=== PATIENT | female | born 1995 | race Hispanic/Latino ===

== ENCOUNTER 2019-10-21 12:57 | Emergency (ER) | payer SELFPAY ==
[2019-10-21 13:47] LABS: Urine Blood NEGATIVE (NEG); Urine Glucose NEGATIVE (NEG); Urine Protein NEGATIVE (NEG)
[2019-10-21] MEDS ORDERED: NA CHLORIDE 0.9% 1,000 ML ONE (14:05)
[2019-10-21 14:23] LABS: Absolute Lymphocytes (CBC) 1.4 K/uL (0.7-4.9); Basophils % 0.3 % (0-1.3); Hematocrit 39.2 % (36.0-45.0); Lymphocytes % 15.5 % (15.3-44.8); MPV 9.4 fL (7.6-11.3); RBC Red Blood Cell Count 4.68 M/uL (3.86-4.86)
[2019-10-21 14:37] LABS: ALT/SGPT 24 U/L (12-78); AST/SGOT 18 U/L (15-37); Alkaline Phosphatase 57 U/L (45-117); BUN Blood Urea Nitrogen 10 mg/dL (7-18); Bicarbonate 25 mmol/L (21-32); Bilirubin Direct 0.2 mg/dL (0-0.2); Bilirubin Total 0.6 mg/dL (0.2-1.0); Glucose Level 91 mg/dL (74-106); Lipase 140 U/L (73-393); Potassium 3.6 mmol/L (3.5-5.1); Protein, Total 8.3 g/dL (6.4-8.2); Sodium Level 138 mmol/L (136-145)
--- NOTE | 2019-10-21 15:09 | RAD REPORT ---
EXAM DESCRIPTION: CT - Abdomen Pelvis W Contrast - 10/21/2019 2:51 pm CLINICAL HISTORY: Abdominal pain COMPARISON: none. TECHNIQUE: Computed axial tomography of the abdomen pelvis was obtained. 100 cc Isovue-300 was admin istered intravenously. Oral contrast was not requested which limits evaluation of bowel. All CT scans are performed using dose optimization technique as appropriate and may include automated exposure control or mA/KV adjustment according to patient size. FINDINGS: Fatty liver The Spleen, pancreas, adrenal and kidneys appear unremarkable. There is no evidence of diverticulitis. Normal appendix Colon lies within the left abdomen pelvis. Small bowel lies within the right abdomen and pelvis. This indicates a malrotation. The wall of several loops of ileum are moderately thickened. No significant free fluid IMPRESSION: Bowel malrotation Moderate wall thickening of several loops of ileum may indicate inflammation
--- NOTE | 2019-10-21 15:49 | ER ---
Nurse's Notes [facility] Name: Diana Haley Age: 24 yrs Sex: Female : 1995 Arrival Date: 10/21/2019 Time: 13:00 Bed 5 Private MD: Diagnosis: Diarrhea, unspecified;Lower abdominal pain, unspecified Presentation: 10/21 13:06 Presenting complaint: Lower abdominal pain and N/D x 2 days. Transition of care: hb patient was not received from another setting of care. Onset of symptoms was October 20, 2019. Risk Assessment: Do you want to hurt yourself or someone else? Patient reports no desire to harm self or others. Initial Sepsis Screen: Does the patient meet any 2 criteria? No. Patient's initial sepsis screen is negative. Does the patient have a suspected source of infection?. Care prior to arrival: None. 13:06 Method Of Arrival: Ambulatory 13:06 Acuity: DAYRON 3 hb Historical: - Allergies: 13:09 No Known Allergies; hb - Home Meds: 13:09 None [Active]; hb - PMHx: 13:09 None; hb - PSHx: 13:09 None; hb - Immunization history:: Adult Immunizations up to date. - Social history:: Smoking status: Patient/guardian denies using tobacco. - Ebola Screening: : No symptoms or risks identified at this time. Screenin:30 Abuse screen: Denies threats or abuse. Denies injuries from another. Nutritional sg screening: No deficits noted. Tuberculosis screening: No symptoms or risk factors identified. Never had TB. Fall Risk None identified. Assessment: 13:30 General: Appears in no apparent distress. well groomed, well developed, well nourished, sg Behavior is calm, cooperative, appropriate for age. Pain: Complains of pain in right lower quadrant Quality of pain is described as aching. Neuro: Level of Consciousness is awake, alert, obeys commands, Oriented to person, place, time, situation, [employer] are equal bilaterally Speech is normal, Facial symmetry appears normal. Cardiovascular: Patient's skin is warm and dry. Chest pain is denied. Respiratory: Airway is patent Respiratory effort is even, unlabored, Respiratory pattern is regular, symmetrical. GI: Abdomen is round non-distended, Bowel sounds present X 4 quads. Abd is soft and non tender X 4 quads. Reports lower abdominal pain, tolerance of fluids, tolerance of food. : No signs and/or symptoms were reported regarding the genitourinary system. EENT: No signs and/or symptoms were reported regarding the EENT system. Derm: Skin is pink, warm \T\ dry. Musculoskeletal: Circulation, motion, and sensation intact. Range of motion: intact in all extremities. Vital Signs: 13:09 BP 129 / 99; Pulse 99; Resp 16; Temp 99.9; Pulse Ox 99% ; Weight 64.86 kg; Height 5 ft. hb (152.40 cm); Pain 3/10; 13:09 Body Mass Index 27.93 (64.86 kg, 152.40 cm) hb ED Course: 13:00 Patient arrived in ED. as 13:03 Kevin Taylor PA is PHCP. [facility] 13:03 Mynor Garcia MD is Attending Physician. [facility] 13:08 Syed Mora, HERMILO is Primary Nurse. sg 13:08 Triage completed. hb 13:09 Arm band placed on. hb 13:30 Patient has correct armband on for positive identification. Bed in low position. Call sg light in reach. Side rails up X2. Pulse ox on. NIBP on. 14:10 Initial lab(s) drawn, by me, sent to lab. Inserted saline lock: 22 gauge in right sg antecubital area, using aseptic technique. Blood collected. 14:19 Radiology exam delayed due to lab results not completed at this time. (BUN/Creatinine). nj 14:52 CT Abd/Pelvis - IV Contrast Only In Process Unspecified. EDMS 16:31 No provider procedures requiring assistance completed. IV discontinued, intact, hb bleeding controlled, No redness/swelling at site. Pressure dressing applied. Administered Medications: 14:15 Drug: NS 0.9% 1000 ml Route: IV; Rate: 1 bolus; Site: right antecubital; sg Outcome: 15:48 Discharge ordered by . [facility] 16:31 Discharged to home ambulatory. hb 16:31 Condition: stable 16:31 Discharge instructions given to patient, Instructed on discharge instructions, follow up and referral plans. medication usage, Demonstrated understanding of instructions, follow-up care, medications, Prescriptions given X 1. 16:32 Patient left the ED. hb Signatures: Dispatcher [employer] EDMS Syed Mora, RN RN Kevin Rhoades PA PA jmm Martinez, Amelia as Baxter, Heather, HERMILO RN Niraj Hernandez
--- NOTE | 2019-10-21 15:50 | EDPHYS ---
Physician Documentation [facility] Name: Diana Haley Age: 24 yrs Sex: Female : 1995 Arrival Date: 10/21/2019 Time: 13:00 Bed 5 Private MD: ED Physician Mynor Garcia HPI: 10/21 13:31 This 24 yrs old Female presents to ER via Ambulatory with complaints of jmm Abdominal Pain. 13:31 The patient presents with abdominal pain right lower quadrant. Onset: The jmm symptoms/episode began/occurred gradually, 2 day(s) ago. The symptoms do not radiate. Associated signs and symptoms: Pertinent positives: diarrhea, nausea. The symptoms are described as achy. Modifying factors: The symptoms are alleviated by nothing, the symptoms are aggravated by alcohol. This is a 24 year old female with no chronic medical conditions that presents to the ED with complaints of pain to her lower abdomen along with multiple episodes of diarrhea. . Historical: - Allergies: 13:09 No Known Allergies; hb - Home Meds: 13:09 None [Active]; hb - PMHx: 13:09 None; hb - PSHx: 13:09 None; hb - Immunization history:: Adult Immunizations up to date. - Social history:: Smoking status: Patient/guardian denies using tobacco. - Ebola Screening: : No symptoms or risks identified at this time. ROS: 13:31 Constitutional: Negative for fever, chills, and weight loss, Cardiovascular: Negative jmm for chest pain, palpitations, and edema, Respiratory: Negative for shortness of breath, cough, wheezing, and pleuritic chest pain. 13:31 Abdomen/GI: Positive for abdominal pain, diarrhea. 13:31 All other systems are negative. Exam: 13:31 Constitutional: This is a well developed, well nourished patient who is awake, alert, jmm and in no acute distress. Head/Face: atraumatic. Eyes: EOMI, no conjunctival erythema appreciated ENT: Moist Mucus Membranes Neck: Trachea midline, Supple Chest/axilla: Normal chest wall appearance and motion. Cardiovascular: Regular rate and rhythm. No edema appreciated Respiratory: Normal respirations, no respiratory distress appreciated 13:31 Back: Normal ROM Skin: General appearance color normal MS/ Extremity: Moves all extremities, no obvious deformities appreciated, no edema noted to the lower extremities Neuro: Awake and alert, normal gait Psych: Behavior is normal, Mood is normal, Patient is cooperative and pleasant 13:31 Abdomen/GI: Inspection: abdomen appears normal, Bowel sounds: normal, Palpation: soft, mild abdominal tenderness, in the right lower quadrant. 13:31 Back: pain. Vital Signs: 13:09 BP 129 / 99; Pulse 99; Resp 16; Temp 99.9; Pulse Ox 99% ; Weight 64.86 kg; Height 5 ft. hb (152.40 cm); Pain 3/10; 13:09 Body Mass Index 27.93 (64.86 kg, 152.40 cm) hb MDM: 13:30 Patient medically screened. [facility] 15:47 Data reviewed: vital signs, nurses notes. Counseling: I had a detailed discussion with [facility] the patient and/or guardian regarding: the historical points, exam findings, and any diagnostic results supporting the discharge/admit diagnosis, radiology results, the need for outpatient follow up, to return to the emergency department if symptoms worsen or persist or if there are any questions or concerns that arise at home. ED course: I discussed CT results with the patient along with strict return precautions Patient understood and agrees with the plan of care. . 10/21 13:44 Order name: Urine Dipstick--Ancillary (enter results) 10/21 13:44 Order name: Urine --Ancillary (enter results) 10/21 13:47 Order name: Urine --Ancillary [facility] 10/21 13:47 Order name: Urine Dipstick-Ancillary [facility] 10/21 13:48 Order name: Basic Metabolic Panel; Complete Time: 14:40 [facility] 10/21 13:48 Order name: CBC with Diff; Complete Time: 14:33 [facility] 10/21 13:48 Order name: Creatinine for Radiology; Complete Time: 14:37 [facility] 10/21 13:48 Order name: Hepatic Function; Complete Time: 14:40 [facility] 10/21 13:48 Order name: Lipase; Complete Time: 14:40 [facility] 10/21 13:48 Order name: IV Saline Lock; Complete Time: 14:02 [facility] 10/21 13:48 Order name: Labs collected and sent; Complete Time: 14:02 [facility] 10/21 13:48 Order name: CT Abd/Pelvis - IV Contrast Only; Complete Time: 15:14 [facility] Administered Medications: 14:15 Drug: NS 0.9% 1000 ml Route: IV; Rate: 1 bolus; Site: right antecubital; sg Disposition: 16:45 Co-signature as Attending Physician, Mynor Garcia MD I agree with the assessment and kdr plan of care. Disposition: 10/21/19 15:48 Discharged to Home. Impression: Diarrhea, unspecified, Lower abdominal pain, unspecified. - Condition is Stable. - Discharge Instructions: Abdominal Pain, Adult, Food Choices to Help Relieve Diarrhea, Adult. - Prescriptions for Ultracet 37.5- 325 mg Oral Tablet - take 1 tablet by ORAL route every 6 hours - for up to 5 days; do not exceed 8 tablets per day.; 20 tablet. - Medication Reconciliation Form, Thank You Letter, Antibiotic Education, Prescription Opioid Use form. - Follow up: Private Physician; When: 2 - 3 days; Reason: Recheck today's complaints, Continuance of care, Re-evaluation by your physician. Signatures: Dispatcher [employer] EDSyed Prieto, RN RN Mynor Garcia MD MD [facility] Kevin Taylor PA PA [facility] Eden Lynn, HERMILO RN hb Corrections: (The following items were deleted from the chart) 16:32 15:48 10/21/2019 15:48 Discharged to Home. Impression: Diarrhea, unspecified; Lower hb abdominal pain, unspecified. Condition is Stable. Forms are Medication Reconciliation Form, Thank You Letter, Antibiotic Education, Prescription Opioid Use. Follow up: Private Physician; When: 2 - 3 days; Reason: Recheck today's complaints, Continuance of care, Re-evaluation by your physician. jackson
[2019-10-21 16:52] VITALS: BP 129/99; TEMP 99.9; O2SAT 99
== END 2019-10-21 16:32 | disposition home or self-care (01) ==
LOC: ER 12:57
DX: R19.7 Diarrhea, unspecified (principal)
CPT/HCPCS: 36415; 74177; 80048; 80076; 81003; 81025; 83690; 85025; 99284; J7030; Q9967